=== PATIENT | male | born 1950 | race Caucasian/White ===

== ENCOUNTER 2017-10-25 14:28 | Emergency (ER) | payer MEDICARE, MEDICAID ==
[~2017-10-25] VITALS: Ht 165.1 cm; Wt 68.0 kg
--- NOTE | 2017-10-25 14:44 | Emergency Room Report ---
History of Present Illness General Chief Complaint: Seizure Source: Patient Present Illness HPI Patient is a 68-year-old male presented after increased seizure activity. The patient reports having prior history of seizure disorder. He reports taking Dilantin. Patient was brought in by EMS seizure was witnessed by bystanders. He denies current locations of pain. History is limited by patient's mental status Allergies: Coded Allergies: No Known Allergies (Unverified , 10/25/17) Patient History Reviewed Nursing Documentation: PMH: Agreed, PSxH: Agreed Nursing Documentation-PMH Hx Seizures: Yes Review of Systems All Other Systems: negative except mentioned in HPI Physical Exam Vital Signs Date Time Temp Pulse Resp B/P (MAP) Pulse Ox O2 Delivery O2 Flow Rate FiO2 10/25/17 14:26 97.9 80 16 130/70 98 Room Air Sp02 EP Interpretation: reviewed, normal General Appearance: normal inspection, well appearing, no apparent distress, alert, non-toxic, Postictal Head: atraumatic ENT: normal ENT inspection, hearing grossly normal, normal voice Neck: normal inspection, full range of motion, supple, no bony tend Respiratory: normal inspection, lungs clear, normal breath sounds, no respiratory distress, no retraction, no wheezing Cardiovascular #1: regular rate, rhythm, no edema Gastrointestinal: normal inspection, normal bowel sounds, non tender, soft, no guarding, no hernia Genitourinary: no CVA tenderness Musculoskeletal: normal inspection, back normal, normal range of motion Neurologic: normal inspection, alert, responsive, registration rep III-XII nml as tested, speech normal Psychiatric: normal inspection, judgement/insight normal, mood/affect normal Skin: normal inspection, normal color, no rash Medical Decision Making Diagnostic Impression: Primary Impression: Epileptic seizure, generalized Additional Impression: Seizure disorder ER Course Patient presented for seizure. Differential diagnosis included cysticercosis, electrolyte abnormality, intracranial hemorrhage, medication noncompliance, mass lesion. The patient was noted to be taking Depakote. Lab level was nontherapeutic. Patient was given oral Depakote. He was given prescription for further medications. The patient stated that he wanted to leave. At the time of discharge patient is awake alert and oriented. He is ambulatory without assistance. The patient is advised to follow up with primary care doctor in 1-2 days. Patient is advised to return if any worsening condition or if any changes in status that are concerning. Labs Test 10/25/17 14:57 White Blood Count 5.4 K/UL (4.8-10.8) Red Blood Count 4.34 M/UL (4.70-6.10) Hemoglobin 14.4 G/DL (14.2-18.0) Hematocrit 43.6 % (42.0-52.0) Mean Corpuscular Volume 101 FL (80-99) Mean Corpuscular Hemoglobin 33.1 PG (27.0-31.0) Mean Corpuscular Hemoglobin Concent 33.0 G/DL (32.0-36.0) Red Cell Distribution Width 12.7 % (11.6-14.8) Platelet Count 237 K/UL (150-450) Mean Platelet Volume 7.2 FL (6.5-10.1) Neutrophils (%) (Auto) 72.1 % (45.0-75.0) Lymphocytes (%) (Auto) 11.8 % (20.0-45.0) Monocytes (%) (Auto) 10.7 % (1.0-10.0) Eosinophils (%) (Auto) 3.6 % (0.0-3.0) Basophils (%) (Auto) 1.8 % (0.0-2.0) Sodium Level 141 MMOL/L (136-145) Potassium Level 4.2 MMOL/L (3.5-5.1) Chloride Level 105 MMOL/L (98-107) Carbon Dioxide Level 25 MMOL/L (21-32) Anion Gap 12 mmol/L (5-15) Blood Urea Nitrogen 39 mg/dL (7-18) Creatinine 1.1 MG/DL (0.55-1.30) Estimat Glomerular Filtration Rate > 60 mL/min (>60) Glucose Level 93 MG/DL (74-106) Calcium Level 9.3 MG/DL (8.5-10.1) Total Bilirubin 0.2 MG/DL (0.2-1.0) Aspartate Amino Transf (AST/SGOT) 15 U/L (15-37) Alanine Aminotransferase (ALT/SGPT) 13 U/L (12-78) Alkaline Phosphatase 76 U/L (46-116) Total Protein 7.1 G/DL (6.4-8.2) Albumin 3.3 G/DL (3.4-5.0) Globulin 3.8 g/dL Albumin/Globulin Ratio 0.9 (1.0-2.7) Phenytoin (Dilantin) Level < 0.4 ug/mL (10-20) Valproic Acid (Depakene) Level < 3 MCG/ML (50-100) Serum Alcohol < 3 mg/dL EKG Diagnostic Results Rate: normal - 87 Rhythm: NSR ST Segments: no acute changes Last Vital Signs Date Time Temp Pulse Resp B/P (MAP) Pulse Ox O2 Delivery O2 Flow Rate FiO2 10/25/17 14:26 97.9 80 16 130/70 98 Room Air Status: improved Disposition: HOME, SELF-CARE Condition: Stable Scripts Divalproex Sodium (Depakote) 500 Mg Tablet. 500 MG PO BID, #30 TAB Prov: Ulises Rodriguez 10/25/17 Ulises Rodriguez Oct 25, 2017 14:44
[2017-10-25 14:48] VITALS: BP 133/77
[2017-10-25 15:12] LABS: BASOPHILS % (AUTO) 1.8 % (0.0-2.0); EOSINOPHILS % (AUTO) 3.6 % (0.0-3.0); LYMPHOCYTES % (AUTO) 11.8 % (20.0-45.0); MEAN CORPUSCULAR HEMOGLOBIN 33.1 PG (27.0-31.0); MEAN CORPUSCULAR VOLUME 101 FL (80-99); MEAN PLATELET VOLUME 7.2 FL (6.5-10.1); MONOCYTES % (AUTO) 10.7 % (1.0-10.0); NEUTROPHILS % (AUTO) 72.1 % (45.0-75.0); PLATELET COUNT 237 K/UL (150-450); RED BLOOD COUNT 4.34 M/UL (4.70-6.10); RED CELL DISTRIBUTION WIDTH 12.7 % (11.6-14.8); WHITE BLOOD COUNT 5.4 K/UL (4.8-10.8)
[2017-10-25 15:20] VITALS: BP 143/82
[2017-10-25] MEDS ORDERED: Depakote 500mg tab ORAL ONE ×2 (15:30→16:00)
[2017-10-25 15:40] LABS: ANION GAP 12 mmol/L (5-15); CALCIUM 9.3 MG/DL (8.5-10.1); CARBON DIOXIDE 25 MMOL/L (21-32); CHLORIDE 105 MMOL/L (98-107); CREATININE 1.1 MG/DL (0.55-1.30); GLOMERULAR FILTRATION RATE > 60 mL/min (>60); POTASSIUM 4.2 MMOL/L (3.5-5.1); SODIUM 141 MMOL/L (136-145)
[2017-10-25 15:46] LABS: ALANINE AMINOTRANSFERASE 13 U/L (12-78); ALBUMIN/GLOBULIN RATIO 0.9 (1.0-2.7); ALCOHOL < 3 mg/dL; ASPARTATE AMINO TRANSFERASE 15 U/L (15-37); TOTAL PROTEIN 7.1 G/DL (6.4-8.2); VALPROIC ACID < 3 MCG/ML (50-100)
--- NOTE | 2017-10-25 15:51 | Diagnostic Imaging Report ---
Indications: Altered mental status Technique: Spiral acquisitions obtained through the brain. Angled axial and coronal 5 x 5 mm slices were reconstructed. Total dose length product 1421 mGycm. CTDI vol(s) 70 mGy. Dose reduction achieved using automated exposure control Comparison: 10/22/2010 Findings: Again demonstrated is mild age-related enlargement of the ventricles and extra-axial CSF spaces and minimal periventricular deep white matter chronic ischemic change. No acute intracranial hemorrhage or edema, mass effect, or midline shift. Intact calvarium. Visualized orbits are unremarkable. There is minimal sphenoid sinus mucosal thickening. Previously demonstrated left frontal scalp contusion is no longer evident. There is no significant interval change otherwise Impression: Mild chronic and age-related changes, as described Negative for acute intracranial bleed or mass effect. Minimal sinus disease The CT scanner at [facility] is accredited by the [employer] and the scans are performed using protocols designed to limit radiation exposure to as low as reasonably achievable to attain images of sufficient resolution adequate for diagnostic evaluation.
[2017-10-25] MEDS ORDERED: DEPAKOTE500 MG PO (15:56)
[2017-10-25 16:06] VITALS: BP 139/82
[2017-10-25 16:08] VITALS: BP 139/82
--- NOTE | 2017-10-27 11:00 | Cardiology Report ---
APPROVED REPORT EKG Measurement Heart [id number] Normal sinus rhythm Normal ECG
== END 2017-10-25 16:15 | disposition home or self-care (01) ==
LOC: EDBD 14:28 → EMR 16:15
DX: G40.409 Other generalized epilepsy and epileptic syndromes, not intractable, without status epilepticus (principal)
CPT/HCPCS: 36415; 70450; 80053; 80164; 80185; 82962; 85025; 93005; 99284; G0480; 80329